=== PATIENT | male | born 1960 | race Caucasian/White ===

== ENCOUNTER 2018-11-28 18:10 | Emergency (ER) | payer BC ==
[2018-11-28 18:27] VITALS: BP 146/88
[2018-11-28] MEDS ORDERED: SILVER NITRATE APPLICATOR 1 APPL TP ONE ×2 (18:32→18:34)
[2018-11-28] MEDS ORDERED: OXYMETAZOLINE 30 ML NASAL SPRAY ONE (18:32)
[2018-11-28] MEDS ORDERED: OXYMETAZOLINE 30 ML NASAL SPRAY EACHNARE ONE (18:34)
--- NOTE | 2018-11-28 18:43 | EDPHY ---
H & P Stated Complaint: nosebleed for 10 hours Time Seen by Provider: 11/28/18 18:14 HPI/ROS: 58 yo M presents c/o left nostril nosebleed , more of a nuisance than an emergency. No fever or chills, not on blood thinners. Hx of hypertension, hyperlipidemia, hypothyroidism. Review of systems As per HPI General no fever no chills no weakness HEENT no eye pain no eye discharge. No eye redness, no sore throat Respiratory no cough, no shortness of breath Cardiac no chest pain, no peripheral edema GI no abdominal pain, no diarrhea, no constipation, no nausea, no vomiting no flank pain, no hematuria, no dysuria Musculoskeletal no myalgias, no joint pain Heme no easy bruising, no easy bleeding Endo no polyuria, no polydipsia Skin no rashes, no pruritus Neuro no syncope, no dizziness, no headaches Psych is no suicidal ideation, no homicidal ideation Source: Patient Exam Limitations: No limitations - Personal History Current Tetanus Diphtheria and Acellular Pertussis (TDAP): Yes Tetanus Vaccine Date: unsure - Medical/Surgical History Hx Asthma: No Hx Chronic Respiratory Disease: No Hx Diabetes: Yes Hx Cardiac Disease: Yes Hx Renal Disease: No Hx Cirrhosis: No Hx Alcoholism: No Hx HIV/AIDS: No Hx Splenectomy or Spleen Trauma: No Other PMH: hypothyroid, hypertension,diabetes,ortho surgeries - Family History Significant Family History: No pertinent family hx - Social History Smoking Status: Never smoked Alcohol Use: None Drug Use: None - Physical Exam Exam: 58 yo M Alert and oriented in no acute distress nontoxic appearance, afebrile Atraumatic normocephalic Left nares with small area on anterior septum with active bleeding No blood in posterior pharynx no blood in right naris Neck no JVD Lungs clear to auscultation, no respiratory distress Heart regular rate and rhythm Extremities no cyanosis clubbing edema Constitutional: Initial Vital Signs Temperature (C) 36.8 C 11/28/18 18:20 Heart Rate 81 11/28/18 18:20 Respiratory Rate 14 11/28/18 18:20 Blood Pressure 146/88 H 11/28/18 18:20 O2 Sat (%) 98 11/28/18 18:20 O2 Delivery Mode Room Air Allergies/Adverse Reactions: No Known Allergies Allergy (Unverified 11/28/18 18:18) Home Medications: Medication Instructions Recorded Aspirin 11/28/18 Atorvastatin Calcium 11/28/18 Insulin Regular Human 11/28/18 Levothyroxine 11/28/18 Lisinopril 11/28/18 Medical Decision Making ED Course/Re-evaluation: Patient seen and evaluated for nose bleed Patient's notice cleared of all blood clots, Afrin applied, silver nitrate to cauterize small area of active bleeding on anterior septum. Patient tolerated well. Re-examine the patient approximately 20 min after septal cautery, no further bleeding. Impression Left anterior epistaxis Plan Discharge Advised to apply moisturizer such as Vaseline or Aquaphor daily Given nose bleed instructions Differential Diagnosis: Differential diagnosis considered but not limited to: Epistaxis, nasal tumor, nasal trauma, bleeding diathesis - Data Points Medications Given: Discontinued Medications Oxymetazoline HCl (Afrin Nasal Gibson) 2 sprays EACHNARE EDNOW ONE Stop: 11/28/18 18:35 Last Admin: 11/28/18 18:35 Dose: 2 sprays Silver Nitrate/Potassium Nitrate (Silver Nitrate Applicator) 1 each TP EDNOW ONE Stop: 11/28/18 18:35 Last Admin: 11/28/18 18:36 Dose: 1 each Departure - Departure Disposition: Home, Routine, Self-Care Clinical Impression: Anterior epistaxis Condition: Good Instructions: Nosebleed (ED) Referrals: NONE *PRIMARY CARE P,. [Primary Care Provider] - As per Instructions
== END 2018-11-28 19:05 | disposition home or self-care (01) ==
LOC: CED 18:10
PROC: 3E09XTZ Introduction of Destructive Agent into Nose, External Approach (ICD-10-PCS; principal; 2018-11-28)
DX: R04.0 Epistaxis (principal); I10 Essential (primary) hypertension; E78.5 Hyperlipidemia, unspecified; E03.9 Hypothyroidism, unspecified
CPT/HCPCS: 99283-ER